=== PATIENT | male | born 1995 | race Caucasian/White ===

== ENCOUNTER 2019-09-21 09:57 | Emergency (ER) | payer SELFPAY ==
[~2019-09-21] VITALS: Ht 180.3 cm; Wt 134.4 kg
[2019-09-21 10:03] VITALS: Ht 180.3 cm; Wt 134.4 kg
[2019-09-21 11:25] VITALS: BP 171/89
== END 2019-09-21 10:39 | disposition home or self-care (01) ==
LOC: ED 09:57
DX: S43.085A Other dislocation of left shoulder joint, initial encounter (principal); W10.8XXA Fall (on) (from) other stairs and steps, initial encounter; Y93.89 Activity, other specified; Y92.89 Other specified places as the place of occurrence of the external cause; Y99.8 Other external cause status
CPT/HCPCS: J2001; J2270; J2405; Q0092